=== PATIENT | male | born 1965 | race Caucasian/White ===

== ENCOUNTER 2019-01-31 06:24 | Day surgery (SDC) | payer MEDICAID ==
[2019-01-31] MEDS ORDERED: Lactated Ringers 1,000 ML IV SCH (07:00)
[2019-01-31] MEDS ORDERED: Midazolam 1 MG/ML 2 ML SDV ONE (07:17)
[2019-01-31] MEDS ORDERED: Propofol 200 MG/20 ML SDV ONE ×2 (07:17→07:44)
[2019-01-31] MEDS ORDERED: fentaNYL 100 MCG/2 ML SDV ONE (07:17)
--- NOTE | 2019-01-31 09:17 | OR ---
DATE OF PROCEDURE: 01/31/2019 PREOPERATIVE DIAGNOSIS: Colon cancer screening. POSTOPERATIVE DIAGNOSES: Diverticulosis, small splenic flexure polyp. PROCEDURE PERFORMED: Colonoscopy to the cecum with biopsy resection of small splenic flexure polyp. SURGEON: Jordan Curry MD ANESTHESIA: IV anesthesia with monitored anesthesia care. INDICATION: This 53-year-old white male is referred for a colonoscopy for colon cancer screening. He has never had a colonoscopic exam. I counseled him for the procedure, including risks and alternatives, and he gave his informed consent to proceed. DESCRIPTION OF PROCEDURE: The patient was placed in the left lateral decubitus position. IV anesthesia was administered by the Anesthesia Service. Time-out was held. A rectal exam was performed, which was unremarkable. The flexible video Olympus colonoscope was introduced through his anus, up his rectum, and out his colon all the way to the cecum. En route, we saw a few scattered left-sided diverticula. There was no bleeding or inflammation associated with them. Additionally, at the splenic flexure, we encountered a polyp, which was removed with a few bites of the biopsy forceps. Once the cecum was reached , the scope was slowly withdrawn, examining the mucosa throughout. No additional mucosal abnormalities were noted. The scope was retroflexed in the rectum with the distal rectum appearing unremarkable. The scope was straightened and removed. He tolerated the procedure well. Jordan Curry MD /[id number]
== END 2019-01-31 09:15 | disposition home or self-care (01) ==
LOC: JP.SDS 06:24
PROVIDERS: ATTEND Surgery
DX: Z12.11 Encounter for screening for malignant neoplasm of colon (principal); D12.3 Benign neoplasm of transverse colon; K57.30 Diverticulosis of large intestine without perforation or abscess without bleeding; F17.200 Nicotine dependence, unspecified, uncomplicated; Z79.899 Other long term (current) drug therapy
CPT/HCPCS: 45380; 88305; J2250; J2704; J3010; J7120

== ENCOUNTER 2022-04-08 06:19 | Day surgery (SDC) | payer SELFPAY ==
[2022-04-08] MEDS ORDERED: Midazolam 1 MG/ML 2 ML SDV ONE (06:58)
[2022-04-08] MEDS ORDERED: fentaNYL 100 MCG/2 ML SDV ONE (06:58)
[2022-04-08] MEDS ORDERED: Propofol 200 MG/20 ML SDV ONE ×2 (06:58→08:30)
[2022-04-08] MEDS ORDERED: Lactated Ringers 1,000 ML IV SCH (07:00)
== END 2022-04-08 10:00 | disposition home or self-care (01) ==
LOC: JP.SDS 06:19
PROVIDERS: ATTEND Family Medicine
DX: Z12.11 Encounter for screening for malignant neoplasm of colon (principal); D12.2 Benign neoplasm of ascending colon; D12.5 Benign neoplasm of sigmoid colon; F17.200 Nicotine dependence, unspecified, uncomplicated; Z98.890 Other specified postprocedural states
CPT/HCPCS: J2250; J2704; J3010; J7120